=== PATIENT | male | born 1985 | race Caucasian/White ===

== ENCOUNTER 2024-02-03 02:17 | Emergency (ER) | payer BC, SELFPAY ==
[2024-02-03 02:31] VITALS: BP 132/90; PULSE 76; RESP 16; TEMP 36.6; O2SAT 98; BMI 29.1
[2024-02-03] MEDS: hydrOXYzine pamoate 25 MG CAPSULE 50 MG PO (03:02)
--- NOTE | 2024-02-03 03:04 | ED_ITS ---
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 He does unders tand most spoken Sinhala and I understand most spoken Upper Sorbian. I can confirm that she did a phenomenal job interpreting. Patient awoke about 1 hour prior to arrival from sleep. He got up to use the bathroom and when he came back to bed, he felt like his heart was racing and has felt anxious. Did not take his pulse. No dizziness, shortness of breath, chest pain or other similar symptoms. He does have a history of anxiety and takes sertraline 25 mg once daily for this. He has had panic attacks in the past, last was about 2-3 years ago. He started this sertraline shortly there after. No history of suicide attempt, no history of mental health hospitalization. No history of psychosis. Symptoms have improved quite a bit since he got to the emergency department. He has no history of arrhythmia or coronary artery disease. He is a nonsmoker. He still feels anxious. There are no specific triggers. He did not try any interventions to help with his symptoms. He is not currently in counseling. He had blood work performed earlier this year and his does believe his thyroid and hemoglobin were checked. Denies alcohol intake. Past medical history notable only for anxiety disorder. His home meds are Zyrtec and sertraline. No known drug allergies. ROS is notable for the palpitations and generalized symptoms as above, otherwise denies times 12 systems. Related Data Home Medications ?Medication ?Instructions ?Recorded ?Confirmed sertraline 25 mg tablet 25 mg PO DAILY 02/03/24 02/03/24 Previous Rx's ?Medication ?Instructions ?Recorded hydroxyzine pamoate 25 mg capsule 25 mg PO BID PRN Panic attacks #20 02/03/24 (Vistaril) caps Allergies Allergy/AdvReac Type Severity Reaction Status Date / Time No Known Drug Allergies Allergy Verified 02/03/24 02:34 [facility] Social History Non-prescribed substance use: denies use Exam Const: Vital Signs, click to edit/add: Vital Signs - 24 hr 02/03/24 02:31 Temperature 98 F Pulse Rate [Pulse Oximeter] 76 Respiratory Rate 16 Blood Pressure [Ri ght Upper Arm] 132/90 H Pulse Oximetry 98 Oxygen Delivery Me thod Room Air Documenting provider has reviewed patient's vital signs: yes General appearance: well kempt Other: Mildly anxious but answers questions appropriately. Well nourished, well hydrated, well groomed. HENMT: Common normals: normocephalic Head and scalp: normocephalic Face and sinus: normal facial exam Mouth: oral and palatal mucosa normal Eye: Common normals: conjunctivae normal General eye: normal appearance of both eyes Conjunctiva: conjunctiva(e) normal Neck & C-Spine: Common normals: full ROM, no lymphadenopathy and thyroid normal General: normal visual inspection Thyroid: thyroid normal Resp: Common normals: normal respiratory effort, no use of accessory muscles and clear to auscultation bilaterally Effort & inspection: able to speak in complete sentences Auscultation: clear to auscultation bilaterally Cardio: Common normals: regular rate, regular rhythm and S2 normal heart sound Rate: regular rate Rhythm: regular rhythm Heart sounds: S2 normal Other: Slight mid systolic click suspicious for mild mitral valve prolapse. GI: Common normals: Normal to inspection, nondistended, normoactive bowel sounds present and soft to palpation Palpation: soft Psych: Common normals: thought process normal and speech normal Appearance: well kempt Attitude: engaged Activity/motor behavior: appropriate eye contact Speech: normal speech Mood and affect: anxious Thought process: normal thought process Insight: insight good Judgement: judgment good Skin: Common normals: no rashes or lesions noted Narrative: No signs of self injury or trauma General skin exam: no rashes or lesions noted Course Course ED Course: 39-year-old male with symptoms that he suspects are related to anxiety of palpitations that have improved. Vitals are stable here in the ET. EKG is performed, interpreted per myself. Normal sinus rhythm with rate of 81. Normal intervals and axis. No significant ST or T-wave abnormalities. This is discussed with him. No prior comparison. We discussed his symptoms, he has had workup for this in the past. He is compliant with his sertraline. We discussed how he will also get occasional breakthrough panic and this is not necessarily of concern. I am not detecting any arrhythmia today. We discussed Vistaril. Will give 50 mg p.o. x1 here in the ED and I offered a prescription for 25 mg up to b.i.d. p.r.n. for panic. If he has 2 or more panic attacks per month on average, he really should be on a higher dose of sertraline would need to follow up with his primary care provider. Consider counseling to help learn panic diffusing strategies as well. Alarm symptoms reviewed that would warrant ED presentation. Written instructions are provided. All questions answered. Will be discharged home. Vital Signs Vital signs: Initial Vital Signs Temperature 98 F 02/03/24 02:31 Temperature Source Temporal Artery Scan 02/03/24 02:31 Pulse Rate 76 02/03/24 02:31 Respiratory Rate 16 02/03/24 02:31 Blood Pressure 132/90 H 02/03/24 02:31 Blood Pressure Mean 104 02/03/24 02:31 Blood Pressure Position Sitting 02/03/24 02:31 Pulse Oximetry 98 02/03/24 02:31 Oxygen Delivery Method Room Air 02/03/24 02:31 Vital Signs Temperature 98 F 02/03/24 02:31 Pulse Rate 76 02/03/24 02:31 Respiratory Rate 16 02/03/24 02:31 Blood Pressure 132/90 H 02/03/24 02:31 Pulse Oximetry 98 02/03/24 02:31 Oxygen Delivery Method Room Air 02/03/24 02:31 Temperature 98 F 02/03/24 02:31 Pulse Rate 76 02/03/24 02:31 Respiratory Rate 16 02/03/24 02:31 Blood Pressure 132/90 H 02/03/24 02:31 Pulse Oximetry 98 02/03/24 02:31 Oxygen Delivery Method Room Air 02/03/24 02:31 Medications Administered Medications: Generic Name Dose Route Start Last Admin Trade Name Freq PRN Reason Stop Dose Admin Hydroxyzine Pamoate 50 mg 02/03/24 02:58 02/03/24 03:02 Hydroxyzine Pamoate 25 Mg Capsule PO 02/03/24 02:59 50 mg ONCE ONE Administration Discharge Plan Discharge Clinical Impression: Acute anxiety Patient Disposition: Home w/ Parent or Adult Condition: Improved Instructions: Anxiety (ED) Additional Instructions: As we discussed, your vital signs, exam and EKG today looks very reassuring. I do not think there is something more serious going on. It is reassuring as well that you have had blood work earlier this year that has been normal as well. It sounds like the sertraline works pretty well for you, please continue taking this to help prevent anxiety attacks. If you have more than 1 a month, it is probably a sign that your dose should be adjusted. Follow-up with your regular primary care doctor if you continue to have episodes similar to tonight. I would also like for you to have a medication that you can take on demand if you experience symptoms of panic. I like the gentle option, Vistaril. You may take this if you have similar symptoms in the future to see if it helps reduce your panic. A usually takes about 20 minutes to kick in. Sometimes just knowing that you have access to this medicine if the panic attack worsens can help you diffuse your own symptoms. Remember that counseling can also be helpful to learn techniques to diffuse panic attacks if you are willing to do this. Your primary care doctor could put in a referral if needed. You may return to work unrestricted. Activity Level: No Restrictions Discharge Diet: Regular Prescriptions: New hydroxyzine pamoate [Vistaril] 25 mg capsule 25 mg PO BID PRN (Reason: Panic attacks) Qty: 20 0RF No Action sertraline 25 mg tablet 25 mg PO DAILY Stand Alone Forms: Qgiv Info Instructions
== END 2024-02-03 03:19 | disposition home or self-care (01) ==
PROVIDERS: Emergency Provider Family Medicine
DX: F41.9 Anxiety disorder, unspecified (principal)
CPT/HCPCS: 99283; A9270